=== PATIENT | female | born 1955 | race African-American/Black ===

== ENCOUNTER 2021-03-13 08:14 | Emergency (ER) | payer OTHER, MEDICAID ==
[~2021-03-13] VITALS: Ht 167.6 cm; Wt 81.0 kg
[2021-03-13] MEDS ORDERED: HYDROCODONE/ACETAMINOPHEN 5/325MG TABLET PO ONE ×2 (09:00→11:15)
[2021-03-13] MEDS ORDERED: KETOROLAC 60MG/2ML VIAL IM ONE (09:00)
[2021-03-13] MEDS ORDERED: CYCLOBENZAPRINE 10MG TABLET PO STA (11:02)
[2021-03-13 11:22] VITALS: BP 131/68
[2021-03-13] MEDS ORDERED: CYCL5TAB MT (11:31)
== END 2021-03-13 12:02 | disposition home or self-care (01) ==
LOC: ER 08:14
DX: M54.9 Dorsalgia, unspecified (principal); M48.00 Spinal stenosis, site unspecified; I48.91 Unspecified atrial fibrillation; M54.30 Sciatica, unspecified side; I51.9 Heart disease, unspecified; Z85.3 Personal history of malignant neoplasm of breast
CPT/HCPCS: 96372; 99284; J1885